=== PATIENT | female | born 1965 | race Caucasian/White ===

== ENCOUNTER 2018-07-27 04:59 | Inpatient (IN) | payer BC ==
[~2018-07-27] VITALS: Ht 149.9 cm; Wt 88.6 kg
[2018-07-27 09:27] VITALS: Ht 149.9 cm; Wt 88.6 kg
[2018-07-27] MEDS ORDERED: LEVO25TA6 PO (09:39)
[2018-07-27 11:00] VITALS: BP 166/83; PULSE 73; RESP 18
[2018-07-27] MEDS ORDERED: ONDANSETRON 4 MG INJ IV PRN (11:30)
[2018-07-27] MEDS ORDERED: ZOLPIDEM 5 MG TAB PO PRN (11:30)
[2018-07-27] MEDS ORDERED: DOCUSATE SODIUM 100 MG CAP PO PRN (11:30)
[2018-07-27] MEDS ORDERED: ACETAMINOPHEN 325 MG TAB PO PRN (11:30)
[2018-07-27] MEDS ORDERED: NACL 0.9% 3 ML SYG IV SCH (11:30)
[2018-07-27] MEDS ORDERED: HYDROCODONE/APAP (5/325) TAB PO PRN (11:30)
[2018-07-27] MEDS: morphine 2 MG INJ IV PRN ×2 (11:33→15:39)
[2018-07-27] MEDS ORDERED: PIPER-TAZO 3.375 GM IV (PMX) 100 ML IVPB SCH (12:00)
[2018-07-27] MEDS ORDERED: LEVOFLOXACIN 750MG/D5W (PMX) 150 ML IVPB SCH (13:00)
--- NOTE | 2018-07-27 13:20 | HP ---
Date/Time of Note Date/Time of Note DATE: 07/27/18 TIME: 13:17 Assessment/Plan VTE Prophylaxis SCD applied (from Nsg): Yes Pharmacological prophylaxis: NA/contraindicated Pharm contraindication: surgical contra Lines/Catheters IV Catheter Type (from Nrsg): Saline Lock Assessment/Plan Hospital Course 1. Right upper quadrant abdominal pain secondary to cholelithiasis and/or cholecystitis Ultrasound at outside hospital showed cholelithiasis with possible cholecystitis Follow-up on HIDA scan Surgery consultation with Dr. Stevan shipman Patient has no fevers or white count, no indication for antibiotics at this time 2. Hypothyroidism Continue meds 3. Morbid obesity Lifestyle changes Prophylaxis: SCDs HPI/ROS Admit Date/Time Admit Date/Time Jul 27, 2018 at 08:50 Hx of Present Illness Patient is a 53-year-old female with a history of obesity and hypothyroidism who presents with 3 days of worsening abdominal pain. Patient states that the pain was initially diffuse throughout her entire abdomen, the pain became worse yesterday and currently the pain is only in the right upper quadrant. Patient presented to an outside ER where labs including white count were normal, abdominal ultrasound showed cholelithiasis and possible cholecystitis. Patient denies any fevers, constipation or diarrhea, patient denies such symptoms in the past. Patient does report nausea and decreased p.o. intake over the past 2 days and to report having chills yesterday. Patient is currently stable with no other acute complaints. ROS Constitutional: no complaints, improved Eyes: no complaints ENT: no complaints Respiratory: no complaints Cardiovascular: no complaints Gastrointestinal: pain (Right upper quadrant) Genitourinary: no complaints Musculoskeletal: no complaints Skin: no complaints Neurologic: no complaints Endocrine: no complaints Lymphatic: no complaints Psychological: no complaints, nl mood/affect Immunologic: no complaints PMH/Family/Social Past Medical History Hypothyroidism Medications Current Medications IV Flush (NS 3 ml) 3 ml PER PROTOCOL IV ; Start 07/27/18 at 11:30 Ondansetron HCl (Zofran Inj) 4 mg Q6H PRN IV NAUSEA/VOMITING; Start 07/27/18 at 11:30 Acetaminophen (Tylenol Tab) 650 mg Q6H PRN PO .PAIN 1-3 OR TEMP; Start 07/27/18 at 11:30 Acetaminophen/ Hydrocodone Bitart ([place] (5/325)) 1 tab Q6H PRN PO .MOD PAIN 4- 6; Start 07/27/18 at 11:30 Morphine Sulfate (morphine) 2 mg Q4H PRN IV .SEVERE PAIN 7-10 Last administered on 07/27/18at 11:33; Admin Dose 2 MG; Start 07/27/18 at 11:30 Docusate Sodium (Colace) 100 mg Q12H PRN PO .CONSTIPATION; Start 07/27/18 at 11:30 Zolpidem Tartrate (Ambien) 5 mg QHS PRN PO .INSOMNIA; Start 07/27/18 at 11:30 Levofloxacin/ Dextrose 150 ml @ 100 mls/hr Q24H IVPB ; Start 07/27/18 at 13:00 Metronidazole 100 ml @ 100 mls/hr Q8 IVPB ; Start 07/27/18 at 14:00 Coded Allergies: Penicillins (Verified Allergy, Unknown, 07/27/18) hydrocodone (Verified Allergy, Unknown, 07/27/18) Past Surgical History Past Surgical Hx: no surgical history Family History Significant Family History: no pertinent family hx Social History Alcohol Use: rarely Smoking Status: Never smoker Drug Use: none Exam/Review of Systems Vital Signs Vitals Vital Signs Date Temp Pulse Resp B/P (MAP) Pulse Ox O2 O2 Flow FiO2 Time Delivery Rate 07/27/18 98.4 73 18 166/83 100 11:00 (110) Exam Constitutional: alert, oriented Respiratory: clear to auscultation Cardiovascular: regular rate and rhythm Gastrointestinal: soft, tender (Right upper quadrant); No distended Musculoskeletal: nl extremities to inspection PRABHJOT BURNS Jul 27, 2018 13:20
[2018-07-27] MEDS: Metronidazole 500 MG in NS 100 ML IVPB SCH ×2 (13:26→22:00)
--- NOTE | 2018-07-27 14:15 | CONS ---
Assessment/Plan Assessment/Plan Assessment/Plan (Daily) Cholelithiasis, rule out acute cholecystitis Patient may just have symptomatic cholelithiasis at this point per HIDA scan pending If HIDA scan is positive, would recommend lap antonio tomorrow. HIDA scan is negative, outpatient lap antonio Consultation Date/Type/Reason Admit Date/Time Jul 27, 2018 at 08:50 Date/Time of Note DATE: 07/27/18 TIME: 14:09 Hx of Present Illness The patient is a 53-year-old female with acute onset of right upper quadrant abdominal pain beginning Sunday. Her symptoms persisted throughout the next 2 days and she presented to the ER at [facility]. She was scheduled for surgery there but was transferred here for insurance reasons She had some nausea as well as emesis. She possibly had chills yesterday. She denies diarrhea or constipation. She denies abdominal pain at this point. States she feels much better. She has been tolerating clears this morning. 14 point review of systems was performed. Pertinent negatives and positives per HPI Past Medical History Medical History: hypothyroid, other (Morbid obesity) Home Meds Reported Medications Levothyroxine Sodium* (Levothyroxine Sodium*) 25 Mcg Tablet, 25 MCG PO BEFORE BREAKFAST, #30 TAB 07/27/18 Medications Current Medications IV Flush (NS 3 ml) 3 ml PER PROTOCOL IV ; Start 07/27/18 at 11:30 Ondansetron HCl (Zofran Inj) 4 mg Q6H PRN IV NAUSEA/VOMITING; Start 07/27/18 at 11:30 Acetaminophen (Tylenol Tab) 650 mg Q6H PRN PO .PAIN 1-3 OR TEMP; Start 07/27/18 at 11:30 Acetaminophen/ Hydrocodone Bitart ([place] (5/325)) 1 tab Q6H PRN PO .MOD PAIN 4- 6; Start 07/27/18 at 11:30 Morphine Sulfate (morphine) 2 mg Q4H PRN IV .SEVERE PAIN 7-10 Last administered on 07/27/18at 11:33; Admin Dose 2 MG; Start 07/27/18 at 11:30 Docusate Sodium (Colace) 100 mg Q12H PRN PO .CONSTIPATION; Start 07/27/18 at 11:30 Zolpidem Tartrate (Ambien) 5 mg QHS PRN PO .INSOMNIA; Start 07/27/18 at 11:30 Levofloxacin/ Dextrose 150 ml @ 100 mls/hr Q24H IVPB Last administered on 07/27/18at 13:26; Admin Dose 100 MLS/HR; Start 07/27/18 at 13:00 Metronidazole 100 ml @ 100 mls/hr Q8 IVPB Last administered on 07/27/18at 13:26; Admin Dose 100 MLS/HR; Start 07/27/18 at 14:00 Allergies: Coded Allergies: Penicillins (Verified Allergy, Unknown, 07/27/18) hydrocodone (Verified Allergy, Unknown, 07/27/18) Past Surgical History Past Surgical Hx: no surgical history Family History Significant Family History: no pertinent family hx Social History Alcohol Use: rarely Smoking Status: Never smoker Drug Use: none Exam/Review of Systems Exam Vitals Vital Signs Date Temp Pulse Resp B/P (MAP) Pulse Ox O2 O2 Flow FiO2 Time Delivery Rate 07/27/18 98.4 73 18 166/83 100 11:00 (110) Constitutional: alert, oriented, well developed, obese Head: normocephalic ENMT: nl external ears & nose Neck: supple, non-tender Respiratory: clear to auscultation, normal air movement Cardiovascular: regular rate and rhythm Gastrointestinal: soft, other (Nondistended, questionable right upper quadrant tenderness but only to very deep palpation) Musculoskeletal: nl extremities to inspection Extremities: normal pulses Neurological: 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 II-XII intact, nl mental status Skin: nl turgor, rash or lesions Results Results 24hrs WBC 14 and normal LFTs from [facility] Imaging Imaging Ultrasound from [place] shows cholelithiasis small pericholecystic fluid and possible gallbladder wall thickening Medications Medication Current Medications IV Flush (NS 3 ml) 3 ml PER PROTOCOL IV ; Start 07/27/18 at 11:30 Ondansetron HCl (Zofran Inj) 4 mg Q6H PRN IV NAUSEA/VOMITING; Start 07/27/18 at 11:30 Acetaminophen (Tylenol Tab) 650 mg Q6H PRN PO .PAIN 1-3 OR TEMP; Start 07/27/18 at 11:30 Acetaminophen/ Hydrocodone Bitart ([place] (5/325)) 1 tab Q6H PRN PO .MOD PAIN 4- 6; Start 07/27/18 at 11:30 Morphine Sulfate (morphine) 2 mg Q4H PRN IV .SEVERE PAIN 7-10 Last administered on 07/27/18at 11:33; Admin Dose 2 MG; Start 07/27/18 at 11:30 Docusate Sodium (Colace) 100 mg Q12H PRN PO .CONSTIPATION; Start 07/27/18 at 11:30 Zolpidem Tartrate (Ambien) 5 mg QHS PRN PO .INSOMNIA; Start 07/27/18 at 11:30 Levofloxacin/ Dextrose 150 ml @ 100 mls/hr Q24H IVPB Last administered on 07/27/18at 13:26; Admin Dose 100 MLS/HR; Start 07/27/18 at 13:00 Metronidazole 100 ml @ 100 mls/hr Q8 IVPB Last administered on 07/27/18at 13:26; Admin Dose 100 MLS/HR; Start 07/27/18 at 14:00 ROHIT GREGORIO MD Jul 27, 2018 14:15
[2018-07-27 14:23] VITALS: BP 179/84; PULSE 71; RESP 18
[2018-07-27 15:56] VITALS: BP 161/76; PULSE 71; RESP 16
[2018-07-27] MEDS ORDERED: morphine 4 MG/ML VIAL IV PRN (19:30)
[2018-07-27 22:03] VITALS: BP 174/81; PULSE 76; RESP 16
[2018-07-28] VITALS (19 sets, daily range): BP systolic 89–134; BP diastolic 50–76; PULSE 71–90; RESP 14–20
[2018-07-28] MEDS ORDERED: DEXTROSE 5%-0.45% NACL 1,000 ML IV SCH (05:00)
[2018-07-28] MEDS: Metronidazole 500 MG in NS 100 ML IVPB SCH ×3 (05:28→22:03)
[2018-07-28] MEDS ORDERED: SEVOFLURANE 15 MIN ONE (07:00)
[2018-07-28] MEDS ORDERED: LIDOCAINE 2% (SDV) 5 ML INJ ONE (07:00)
[2018-07-28] MEDS ORDERED: BUPIVACAINE 0.5%/EPI (SDV) 30 ML INJ ONE (07:15)
[2018-07-28] MEDS ORDERED: LIDOCAINE 1% (MPF) 30 ML INJ ONE (07:15)
--- NOTE | 2018-07-28 07:28 | PREAC ---
Date/Time of Note Date/Time of Note DATE: 07/28/18 TIME: 07: Anesthesia Eval and Record Evaluation Time Pre-Procedure Interview DATE: 07/28/18 TIME: : Age 53 Sex female NPO: 8 hrs Preoperative diagnosis cholecystitis Planned procedure laparoscopic cholecystectomy Past Medical History Past Medical History: Includes Endo: Hypothyroid GI: Morbid obesity Surgery & Anesthesia Issues No known issue Meds Anticoagulation: No Beta Daiana within 24 hr: No Reason Beta Daiana not given: Pt. not on B-Daiana Reported Medications Levothyroxine Sodium* (Levothyroxine Sodium*) 25 Mcg Tablet, 25 MCG PO BEFORE B REAKFAST, #30 TAB 07/27/18 Current Medications IV Flush (NS 3 ml) 3 ml PER PROTOCOL IV ; Start 07/27/18 at 11:30 Ondansetron HCl (Zofran Inj) 4 mg Q6H PRN IV NAUSEA/VOMITING Last administered on 07/27/18at 22:00; Admin Dose 4 MG; Start 07/27/18 at 11:30 Acetaminophen (Tylenol Tab) 650 mg Q6H PRN PO .PAIN 1-3 OR TEMP; Start 07/27/18 at 11:30 Acetaminophen/ Hydrocodone Bitart ([place] (5/325)) 1 tab Q6H PRN PO .MOD PAIN 4- 6; Start 07/27/18 at 11:30 Docusate Sodium (Colace) 100 mg Q12H PRN PO .CONSTIPATION; Start 07/27/18 at 11:30 Zolpidem Tartrate (Ambien) 5 mg QHS PRN PO .INSOMNIA; Start 07/27/18 at 11:30 Levofloxacin/ Dextrose 150 ml @ 100 mls/hr Q24H IVPB Last administered on 07/27/18at 13:26; Admin Dose 100 MLS/HR; Start 07/27/18 at 13:00 Metronidazole 100 ml @ 100 mls/hr Q8 IVPB Last administered on 07/28/18at 05:28; Admin Dose 100 MLS/HR; Start 07/27/18 at 14:00 Morphine Sulfate (morphine) 4 mg Q4H PRN IV .SEVERE PAIN 7-10 Last administered on 07/27/18at 22:00; Admin Dose 4 MG; Start 07/27/18 at 19:30 Dextrose/Sodium Chloride 1,000 ml @ 100 mls/hr Q10H IV Last administered on 07/28/18at 05:28; Admin Dose 100 MLS/HR; Start 07/28/18 at 05:00 Meds reviewed: Yes Allergies Coded Allergies: Penicillins (Verified Allergy, Unknown, 07/27/18) hydrocodone (Verified Allergy, Unknown, 07/27/18) Allergies Reviewed: Yes Labs/Studies Labs Reviewed: Reviewed by anesthesiologist Result Diagram: 07/28/18 0538 07/28/1838 Laboratory Tests 07/28/18 05:38 test: Negative Pre-procedure Exam Last vitals Vital Signs Date Temp Pulse Resp B/P (MAP) Pulse Ox O2 O2 Flow FiO2 Time Delivery Rate 07/28/18 98.8 71 18 131/61 96 07:09 (84) Airway: Adequate mouth opening, Adequate thyromental dist Mallampati: Mallampati II Teeth: Normal Lung: Normal Heart: Normal ASA Physical Status ASA physical status: 2 Emergency: None Planned Anesthetic General/MAC: ETT Planned Pain Management Parenteral pain med Pre-operative Attestations Prior to commencing anesthesia and surgery, the patient was re-evaluated, there was verification of: *The patient's identity *The results of appropriate recent lab work and preoperative vital signs *The above evaluation not changing prior to induction *Anesthetic plan, risk benefits, alternative and complications discussed with patient/family; questions answered; patient/family understands, accepts and wishes to proceed. ROYCE SWEENEY Jul 28, 2018 07:28
--- NOTE | 2018-07-28 07:33 | PN ---
Date/Time of Note Date/Time of Note DATE: 07/28/18 TIME: 07:31 Assessment/Plan Lines/Catheters IV Catheter Type (from Nrs): Saline Lock Assessment/Plan Assessment/Plan HIDA scan was consistent with acute cholecystitis overnight. Stress proceeding with laparoscopic, possible open, cholecystectomy, possible cholangiogram. All benefits, risks, alternatives discussed in detail. All questions answered. The patient elects to proceed. Subjective 24 Hr Interval Summary Constitutional: other (Still complaining of pain) Exam/Review of Systems Vital Signs Vitals Vital Signs Date Temp Pulse Resp B/P (MAP) Pulse Ox O2 O2 Flow FiO2 Time Delivery Rate 07/28/18 98.8 71 18 131/61 96 07:09 (84) Intake and Output 07/27/18 07/27/18 07/28/18 1515:00 23:00 07:00 IntakeIntake Total 490 ml 100 ml BalanceBalance 490 ml 100 ml Exam Constitutional: alert, oriented, well developed, obese Respiratory: clear to auscultation Cardiovascular: regular rate and rhythm Gastrointestinal: soft, other (Tender to right upper quadrant) Results Result Diagram: 07/28/18 0538 07/28/18 0538 ROHIT GREGORIO MD Jul 28, 2018 07:33
[2018-07-28] MEDS ORDERED: PROPOFOL 100 ML ONE (07:35)
[2018-07-28] MEDS ORDERED: ROCURONIUM 50 MG INJ ONE (07:37)
[2018-07-28] MEDS ORDERED: SUCCINYLCHOLINE CHLORIDE 100 MG/5 ML SYG IV ONE (07:37)
--- NOTE | 2018-07-28 07:40 | OPR ---
Date/Time of Note Date/Time of Note DATE: 07/28/18 TIME: 07:37 Operative Report Procedure Date: Jul 28, 2018 Preoperative Diagnosis Acute cholecystitis Postoperative Diagnosis Same Operation/Procedure Performed Laparoscopic cholecystectomy Surgeon see signature line Commissioned Security Officer None Anesthesia Type: general Anesthesiologist: ROYCE SWEENEY Estimated Blood Loss: 150 - 200 ml's Transfusion none Specimen Gallbladder Grafts/Implants none Complications none Pt Condition Post Procedure: stable Disposition: PACU Indications The patient is a 53-year-old female with acute onset epigastric right upper quadrant pain. She was scheduled for surgery at an outside hospital was transferred here for insurance reasons. HIDA scan was positive for acute cholecystitis. We discussed proceeding with a laparoscopic, possible open, cholecystectomy, possible cholangiogram. All benefits, risks, alternatives were discussed in detail. All questions answered. The patient elects to proceed. Procedure Description The patient was brought to operative room and placed supine on the table. After preop antibiotics and SCDs, the patient was intubated. The abdomen was cleaned, prepped, draped usual sterile fashion. All incisions were demonstrated with half percent lidocaine with epinephrine. An 11 mm incision was made in the umbilicus. Using a 5 by laparoscope obtained trocar, the abdomen was entered under direct vision insufflated 50 mils of mercury CO2. The following trochars were then placed: a right lower quadrant 5 mm, right upper quadrant 5 mm and a subxiphoid 5 mm. The 5 mm umbilical trocar was exchanged 11 mm and direct vision. The gallbladder was thickened and edematous. It was consistent with acute cholecystitis. It was grasped at the fundus and retracted over the liver. Malcom's pouch was identified and retracted laterally. The peritoneum underneath Becerra's was scored medially and laterally. I dissected out and skeletonized the cystic duct and artery. I dissected the gallbladder off the cystic plate of the liver. I now had my critical view of safety where I saw my duct and artery with no intervening structures. The artery was then clipped twice proximally once distally and divided. The cystic duct was too edematous and enlarged to fit 5 mm clips. I transected the cystic duct. The proximal end was tied off with a Prolene Endoloop. It was a good closure. The gallbladder was then removed and the gallbladder fossa with electrocautery. It was placed in Endo Catch bag removed and the 12 mm trocar site. There was venous bleeding from the gallbladder fossa which was difficult to control with just pressure. However with the administration of FloSeal the gallbladder fossa became hemostatic. I lost approximately 150-20 cc of blood during this process of getting the liver bed under control. I irrigated and aspirated out the right upper quadrant until effluent was clear. I visualized my gallbladder fossa. It was hemostatic. There was no evidence of bleeding or bile staining. Due to the acuteness of these gallbladder, I placed a 19 [place] round Eugenio in the gallbladder fossa. It exited through the right lower quadrant 5 mm trocar site was sutured the skin with a 2-0 nylon. The fascia of the 11 mm trocar site was closed with 0 Vicryl. The abdomen was now desufflated and all trochars were removed. Incisions were all closed with 4 Monocryl, Mastisol, and Steri-Strips. A 2 x 2 gauze and Tegaderm was placed over the umbilical incision and around the PEMA site.. Patient tolerated the procedure well. She was extubated in the OR and transferred to the recovery room in stable condition. ROHIT GREGORIO MD Jul 28, 2018 07:40
[2018-07-28] MEDS ORDERED: ONDANSETRON 4 MG INJ ONE (08:25)
[2018-07-28] MEDS ORDERED: DEXAMETHASONE 4 MG/ML 5 ML INJ ONE (08:25)
[2018-07-28] MEDS ORDERED: PHENYLephrine 10 MG INJ ONE (08:41)
[2018-07-28] MEDS ORDERED: ALBUMIN HUMAN 5% 250 ML ONE (09:12)
--- NOTE | 2018-07-28 09:36 | PAC ---
Date/Time of Note Date/Time of Note DATE: 07/28/18 TIME: 09:36 Post-Anesthesia Notes Post-Anesthesia Note Last documented vital signs Vital Signs Date Temp Pulse Resp B/P (MAP) Pulse Ox O2 O2 Flow FiO2 Time Delivery Rate 07/28/18 98.8 71 18 131/61 96 0936 (84) Activity: WNL Respiratory function: WNL Cardiovascular function: WNL Mental status: Baseline Pain reasonably controlled: Yes Hydration appropriate: Yes Nausea/Vomiting absent: Yes ROYCE SWEENEY Jul 28, 2018 09:36
--- NOTE | 2018-07-28 09:40 | SIPON ---
Date/Time of Note Date/Time of Note DATE: 07/28/18 TIME: 09:38 Operative Report Preoperative Diagnosis Acute cholecystitis Postoperative Diagnosis Same Operation/Procedure Performed Laparoscopic cholecystectomy Surgeon see signature line education administrative assistant none Anesthesia: general Estimated blood loss: 150 - 200 ml's Transfusion Required none Specimen Gallbladder Grafts/Implants none Complications none ROHIT GREGORIO MD Jul 28, 2018 09:40
[2018-07-28] MEDS ORDERED: ALBUTEROL 0.083% (NEB) 2.5 MG/3 ML AMP HHN PRN (10:00)
[2018-07-28] MEDS ORDERED: MEPERIDINE 25 MG INJ IV PRN (10:00)
[2018-07-28] MEDS ORDERED: ONDANSETRON 4 MG INJ IV PRN ×2 (10:00)
[2018-07-28] MEDS ORDERED: EPHEDrine SULFATE 50 MG/5 ML SYG IV PRN (10:00)
[2018-07-28] MEDS ORDERED: DIPHENHYDRAMINE 50 MG INJ IV PRN (10:00)
[2018-07-28] MEDS ORDERED: hydrALAzine 20 MG INJ IV PRN (10:00)
[2018-07-28] MEDS ORDERED: METOCLOPRAMIDE 10 MG INJ IV PRN (10:00)
[2018-07-28] MEDS ORDERED: LABETALOL HCL 20MG INJ IV PRN (10:00)
[2018-07-28] MEDS ORDERED: HYDROmorphONE 1 MG/5 ML IV SYRINGE IV PRN ×3 (10:00)
[2018-07-28] MEDS ORDERED: FENTAnyl 50 MCG/ML VIAL IV PRN ×3 (10:00)
[2018-07-28] MEDS: LEVOFLOXACIN 500MG/D5W (PMX) 100 ML IVPB SCH (11:28)
[2018-07-28] MEDS ORDERED: metroNIDAZOLE 500 MG/NS (PMX) 100 ML IVPB SCH (14:00)
[2018-07-28] MEDS: D5-NS + KCL 20 MEQ 1,000 ML IV SCH ×2 (16:21→20:00)
--- NOTE | 2018-07-28 16:28 | PN ---
Date/Time of Note Date/Time of Note DATE: 07/28/18 TIME: 16:16 Assessment/Plan VTE Prophylaxis Risk score (from Ns)>0 risk: 3 SCD applied (from [facility]): Yes Pharmacological prophylaxis: NA/contraindicated Pharm contraindication: surgical contra Lines/Catheters IV [facility] Type [facility]from [facility]): Peripheral IV Assessment/Plan Hospital Course 1. Acute cholecystitis Status post lap scopic cholecystectomy postop day #0 Patient with PEMA drain Surgery recommendations is for DC home tomorrow or Sunday Continue Levaquin and Flagyl but anticipate discontinuation tomorrow 2. Hypothyroidism Continue meds 3. Morbid obesity Lifestyle changes Prophylaxis: SCDs DC planning: Anticipate DC home tomorrow Sunday depending on surgery recommendations Result Diagram: 07/28/1838 07/28/18 05 Results 24hrs Laboratory Tests Test 07/28/18 05:37 07/28/18 05:38 Serum HCG, Qualitative NEGATIVE White Blood Count 17.9 H Red Blood Count 4.75 Hemoglobin 13.0 Hematocrit 40.9 Mean Corpuscular Volume 86.1 Mean Corpuscular Hemoglobin 27.4 L Mean Corpuscular Hemoglobin Concent 31.8 L Red Cell Distribution Width 15.0 H Platelet Count 208 Mean Platelet Volume 11.9 H Immature Granulocytes % 0.700 H Neutrophils % 84.1 H Lymphocytes % 6.7 L Monocytes % 8.2 Eosinophils % 0.0 Basophils % 0.3 Nucleated Red Blood Cells % 0.0 Immature Granulocytes # 0.130 H Neutrophils # 15.0 H Lymphocytes # 1.2 Monocytes # 1.5 H Eosinophils # 0.0 Basophils # 0.1 Nucleated Red Blood Cells # 0.0 Sodium Level 143 Potassium Level 4.1 Chloride Level 103 Carbon Dioxide Level 32 H Anion Gap 8 Blood Urea Nitrogen 19 Creatinine 0.95 Est Glomerular Filtrat Rate mL/min > 60 Glucose Level 114 Hemoglobin A1c 5.4 Calcium Level 9.9 Phosphorus Level 3.2 Magnesium Level 2.1 Total Bilirubin 0.5 Direct Bilirubin 0.00 Indirect Bilirubin 0.5 Aspartate Amino Transf (AST/SGOT) 20 Alanine Aminotransferase (ALT/SGPT) 16 Alkaline Phosphatase 88 Total Protein 7.2 Albumin 3.8 Globulin 3.40 H Albumin/Globulin Ratio 1.11 Subjective 24 Hr Interval Summary Constitutional: no complaints Exam/Review of Systems Exam Vitals Vital Signs Date Temp Pulse Resp B/P (MAP) Pulse Ox O2 O2 Flow FiO2 Time Delivery Rate 07/28/18 97.7 73 16 107/58 92 11:36 (74) 07/28/18 Simple 10.0 09:53 Mask Intake and Output 07/27/18 07/27/18 07/28/18 1515:00 23:00 07:00 IntakeIntake Total 490 ml 100 ml BalanceBalance 490 ml 100 ml Constitutional: alert, oriented Respiratory: clear to auscultation Cardiovascular: regular rate and rhythm Gastrointestinal: soft; No distended Musculoskeletal: nl extremities to inspection Results Results 24hrs Laboratory Tests Test 07/28/18 05:37 07/28/18 05:38 Serum HCG, Qualitative NEGATIVE White Blood Count 17.9 H Red Blood Count 4.75 Hemoglobin 13.0 Hematocrit 40.9 Mean Corpuscular Volume 86.1 Mean Corpuscular Hemoglobin 27.4 L Mean Corpuscular Hemoglobin Concent 31.8 L Red Cell Distribution Width 15.0 H Platelet Count 208 Mean Platelet Volume 11.9 H Immature Granulocytes % 0.700 H Neutrophils % 84.1 H Lymphocytes % 6.7 L Monocytes % 8.2 Eosinophils % 0.0 Basophils % 0.3 Nucleated Red Blood Cells % 0.0 Immature Granulocytes # 0.130 H Neutrophils # 15.0 H Lymphocytes # 1.2 Monocytes # 1.5 H Eosinophils # 0.0 Basophils # 0.1 Nucleated Red Blood Cells # 0.0 Sodium Level 143 Potassium Level 4.1 Chloride Level 103 Carbon Dioxide Level 32 H Anion Gap 8 Blood Urea Nitrogen 19 Creatinine 0.95 Est Glomerular Filtrat Rate mL/min > 60 Glucose Level 114 Hemoglobin A1c 5.4 Calcium Level 9.9 Phosphorus Level 3.2 Magnesium Level 2.1 Total Bilirubin 0.5 Direct Bilirubin 0.00 Indirect Bilirubin 0.5 Aspartate Amino Transf (AST/SGOT) 20 Alanine Aminotransferase (ALT/SGPT) 16 Alkaline Phosphatase 88 Total Protein 7.2 Albumin 3.8 Globulin 3.40 H Albumin/Globulin Ratio 1.11 Medications Medication Current Medications IV Flush (NS 3 ml) 3 ml PER PROTOCOL IV ; Start 07/27/18 at 11:30 Ondansetron HCl (Zofran Inj) 4 mg Q6H PRN IV NAUSEA/VOMITING Last administered on 07/27/18at 22:00; Admin Dose 4 MG; Start 07/27/18 at 11:30 Acetaminophen (Tylenol Tab) 650 mg Q6H PRN PO .PAIN 1-3 OR TEMP; Start 07/27/18 at 11:30 Acetaminophen/ Hydrocodone Bitart ([place] (5/325)) 1 tab Q6H PRN PO .MOD PAIN 4- 6; Start 07/27/18 at 11:30 Docusate Sodium (Colace) 100 mg Q12H PRN PO .CONSTIPATION; Start 07/27/18 at 11:30 Zolpidem Tartrate (Ambien) 5 mg QHS PRN PO .INSOMNIA; Start 07/27/18 at 11:30 Metronidazole 100 ml @ 100 mls/hr Q8 IVPB Last administered on 07/28/18at 13:35; Admin Dose 100 MLS/HR; Start 07/27/18 at 14:00 Morphine Sulfate (morphine) 4 mg Q4H PRN IV .SEVERE PAIN 7-10 Last administered on 07/27/18at 22:00; Admin Dose 4 MG; Start 07/27/18 at 19:30 Levofloxacin/ Dextrose 100 ml @ 100 mls/hr Q24H IVPB Last administered on 07/28/18at 11:28; Admin Dose 100 MLS/HR; Start 07/28/18 at 10:00 Ondansetron HCl (Zofran Inj) 4 mg Q6H PRN IV NAUSEA AND/OR VOMITING; Start 07/28/18 at 10:00 Acetaminophen (Tylenol Tab) 650 mg Q6H PRN PO MILD PAIN(1-3)OR ELEVATED TEMP; Start 07/28/18 at 10:00 Potassium Chloride/Dextrose/ Sod Cl 1,000 ml @ 100 mls/hr Q10H IV ; Start 07/28/18 at 10:00 Enoxaparin Sodium (Lovenox) 40 mg DAILY@07 SC ; Start 07/29/18 at 07:00 PRABHJOT BURNS Jul 28, 2018 16:27
[2018-07-29 02:03] VITALS: BP 125/64; PULSE 69; RESP 18
[2018-07-29] MEDS: Metronidazole 500 MG in NS 100 ML IVPB SCH ×3 (05:32→21:27)
[2018-07-29] MEDS: D5-NS + KCL 20 MEQ 1,000 ML IV SCH ×3 (05:32→18:48)
[2018-07-29] MEDS: ENOXAPARIN 40 MG/0.4 ML SYG SC SCH (06:35)
[2018-07-29 08:10] VITALS: BP 143/76; PULSE 84; RESP 18
[2018-07-29] MEDS: LEVOFLOXACIN 500MG/D5W (PMX) 100 ML IVPB SCH (09:13)
[2018-07-29 14:32] VITALS: BP 134/73; PULSE 66; RESP 16
--- NOTE | 2018-07-29 17:44 | PN ---
Date/Time of Note Date/Time of Note DATE: 07/29/18 TIME: 17:42 Assessment/Plan Lines/Catheters IV Catheter Type (from Nrsg): Peripheral IV Assessment/Plan Assessment/Plan Postop day #1 status post lap antonio Hemodynamically stable. Hematocrit stable Drain removed Okay for discharge from surgical perspective Subjective 24 Hr Interval Summary Constitutional: no complaints, improved Pain Control: well controlled Exam/Review of Systems Vital Signs Vitals Vital Signs Date Temp Pulse Resp B/P (MAP) Pulse Ox O2 O2 Flow FiO2 Time Delivery Rate 07/29/18 99.3 66 16 134/73 97 14:32 (93) 07/28/18 Simple 10.0 09:53 Mask Intake and Output 07/28/18 07/28/18 07/29/18 1515:00 23:00 07:00 IntakeIntake Total 2730 ml 220 ml 1460 ml OutputOutput Total 225 ml 140 ml 70 ml BalanceBalance 2505 ml 80 ml 1390 ml Exam Constitutional: alert, oriented Psych: no complaints Neck: supple Respiratory: clear to auscultation Gastrointestinal: soft, other (Nondistended, some alexx-incisional tenderness to umbilicus) Results Result Diagram: 07/29/18 1250 07/29/18 0505 ROHIT GREGORIO MD Jul 29, 2018 17:43
[2018-07-29 19:49] VITALS: BP 136/73; PULSE 77; RESP 18
--- NOTE | 2018-07-29 19:53 | PN ---
Date/Time of Note Date/Time of Note DATE: 07/29/18 TIME: 19:53 Assessment/Plan VTE Prophylaxis Risk score (from Nsg)>0 risk: 4 SCD applied (from Ns): Yes Pharmacological prophylaxis: heparin Lines/Catheters IV Catheter Type (from Nrs): Peripheral IV Assessment/Plan Hospital Course 53 yo female with cholecystitis s/p lap antonio POD 1 - Continue abx for now - Dc in AM Result Diagram: 07/29/18 1250 07/29/18 0505 Results 24hrs Laboratory Tests Test 07/29/18 05:05 07/29/18 12:50 White Blood Count 12.1 #H Red Blood Count 3.40 #L Hemoglobin 9.3 #L Hematocrit 29.2 #L 29.2 L Mean Corpuscular Volume 85.9 Mean Corpuscular Hemoglobin 27.4 L Mean Corpuscular Hemoglobin Concent 31.8 L Red Cell Distribution Width 15.1 H Platelet Count 183 Mean Platelet Volume 11.8 H Immature Granulocytes % 0.500 H Neutrophils % 81.0 H Lymphocytes % 9.5 L Monocytes % 8.9 Eosinophils % 0.0 Basophils % 0.1 Nucleated Red Blood Cells % 0.0 Immature Granulocytes # 0.060 H Neutrophils # 9.8 H Lymphocytes # 1.2 Monocytes # 1.1 H Eosinophils # 0.0 Basophils # 0.0 Nucleated Red Blood Cells # 0.0 Sodium Level 142 Potassium Level 3.8 Chloride Level 107 Carbon Dioxide Level 28 Anion Gap 7 Blood Urea Nitrogen 14 Creatinine 0.85 Est Glomerular Filtrat Rate mL/min > 60 Glucose Level 129 Calcium Level 8.7 Total Bilirubin 0.2 Direct Bilirubin 0.00 Indirect Bilirubin 0.2 Aspartate Amino Transf (AST/SGOT) 43 Alanine Aminotransferase (ALT/SGPT) 42 Alkaline Phosphatase 72 Total Protein 5.8 #L Albumin 3.0 L Globulin 2.80 Albumin/Globulin Ratio 1.07 Subjective 24 Hr Interval Summary Free Text/Dictation wants to stay the night feels well, pain controlled Exam/Review of Systems Exam Vitals Vital Signs Date Temp Pulse Resp B/P (MAP) Pulse Ox O2 O2 Flow FiO2 Time Delivery Rate 07/29/18 98.9 77 18 136/73 96 19:49 (94) 07/28/18 Simple 10.0 09:53 Mask Intake and Output 07/28/18 07/28/18 07/29/18 1515:00 23:00 07:00 IntakeIntake Total 2730 ml 220 ml 1460 ml OutputOutput Total 225 ml 140 ml 70 ml BalanceBalance 2505 ml 80 ml 1390 ml Constitutional: alert, oriented, well developed Psych: no complaints, nl mood/affect Head: normocephalic, atraumatic Eyes: nl conjunctiva, EOMI, nl lids, nl sclera, PERRL ENMT: nl external ears & nose, nl lips & teeth, nl nasal mucosa & septum Neck: supple, non-tender Respiratory: clear to auscultation, normal air movement Cardiovascular: regular rate and rhythm, nl pulses Gastrointestinal: soft, nl liver, spleen, non-tender Musculoskeletal: nl extremities to inspection, nl gait and stance Extremities: normal pulses Neurological: [employer] II-XII intact, nl mental status, nl speech, nl strength Skin: nl turgor; No rash or lesions Lymph: nl lymph nodes Results Results 24hrs Laboratory Tests Test 07/29/18 05:05 07/29/18 12:50 White Blood Count 12.1 #H Red Blood Count 3.40 #L Hemoglobin 9.3 #L Hematocrit 29.2 #L 29.2 L Mean Corpuscular Volume 85.9 Mean Corpuscular Hemoglobin 27.4 L Mean Corpuscular Hemoglobin Concent 31.8 L Red Cell Distribution Width 15.1 H Platelet Count 183 Mean Platelet Volume 11.8 H Immature Granulocytes % 0.500 H Neutrophils % 81.0 H Lymphocytes % 9.5 L Monocytes % 8.9 Eosinophils % 0.0 Basophils % 0.1 Nucleated Red Blood Cells % 0.0 Immature Granulocytes # 0.060 H Neutrophils # 9.8 H Lymphocytes # 1.2 Monocytes # 1.1 H Eosinophils # 0.0 Basophils # 0.0 Nucleated Red Blood Cells # 0.0 Sodium Level 142 Potassium Level 3.8 Chloride Level 107 Carbon Dioxide Level 28 Anion Gap 7 Blood Urea Nitrogen 14 Creatinine 0.85 Est Glomerular Filtrat Rate mL/min > 60 Glucose Level 129 Calcium Level 8.7 Total Bilirubin 0.2 Direct Bilirubin 0.00 Indirect Bilirubin 0.2 Aspartate Amino Transf (AST/SGOT) 43 Alanine Aminotransferase (ALT/SGPT) 42 Alkaline Phosphatase 72 Total Protein 5.8 #L Albumin 3.0 L Globulin 2.80 Albumin/Globulin Ratio 1.07 Medications Medication Current Medications IV Flush (NS 3 ml) 3 ml PER PROTOCOL IV ; Start 07/27/18 at 11:30 Acetaminophen/ Hydrocodone Bitart ([place] (5/325)) 1 tab Q6H PRN PO .MOD PAIN 4- 6; Start 07/27/18 at 11:30 Docusate Sodium (Colace) 100 mg Q12H PRN PO .CONSTIPATION; Start 07/27/18 at 1 1:30 Zolpidem Tartrate (Ambien) 5 mg QHS PRN PO .INSOMNIA; Start 07/27/18 at 11:30 Metronidazole 100 ml @ 100 mls/hr Q8 IVPB Last administered on 07/29/18at 14:04; Admin Dose 100 MLS/HR; Start 07/27/18 at 14:00 Morphine Sulfate (morphine) 4 mg Q4H PRN IV .SEVERE PAIN 7-10 Last administered on 07/27/18at 22:00; Admin Dose 4 MG; Start 07/27/18 at 19:30 Levofloxacin/ Dextrose 100 ml @ 100 mls/hr Q24H IVPB Last administered on 07/29/18at 09:13; Admin Dose 100 MLS/HR; Start 07/28/18 at 10:00 Ondansetron HCl (Zofran Inj) 4 mg Q6H PRN IV NAUSEA AND/OR VOMITING; Start 07/28/18 at 10:00 Acetaminophen (Tylenol Tab) 650 mg Q6H PRN PO MILD PAIN(1-3)OR ELEVATED TEMP; Start 07/28/18 at 10:00 Potassium Chloride/Dextrose/ Sod Cl 1,000 ml @ 100 mls/hr Q10H IV Last administered on 07/29/18at 18:48; Admin Dose 100 MLS/HR; Start 07/28/18 at 10:00 Enoxaparin Sodium (Lovenox) 40 mg DAILY@07 SC Last administered on 07/29/18at 06:35; Admin Dose 40 MG; Start 07/29/18 at 07:00 MARK VELASCO MD Jul 29, 2018 19:53
[2018-07-29] MEDS: ACETAMINOPHEN 325 MG TAB PO PRN (20:10)
[2018-07-30 01:17] VITALS: BP 110/68; PULSE 67; RESP 18
[2018-07-30] MEDS: Metronidazole 500 MG in NS 100 ML IVPB SCH (05:59)
[2018-07-30] MEDS: D5-NS + KCL 20 MEQ 1,000 ML IV SCH ×2 (05:59→11:48)
[2018-07-30] MEDS: ENOXAPARIN 40 MG/0.4 ML SYG SC SCH (06:03)
[2018-07-30 08:00] VITALS: BP 133/78; PULSE 59; RESP 16
[2018-07-30] MEDS: ACETAMINOPHEN 325 MG TAB PO PRN (08:28)
[2018-07-30] MEDS: LEVOFLOXACIN 500MG/D5W (PMX) 100 ML IVPB SCH (10:00)
--- NOTE | 2018-07-30 16:28 | DS ---
Date/Time of Note Date/Time of Note DATE: 07/30/18 TIME: 16:27 Discharge Summary Admission/Discharge Info Admit Date/Time Jul 27, 2018 at 08:50 Discharge Date/Time Jul 30, 2018 at 13:20 Discharge Diagnosis Cholecystitis Patient Condition: Stable Hospital Course 53 yo female with cholecystitis . Treated with IV antibiotics. She then underwent cholecystectomy per Dr Woodard, uncopmlicated. Discharged to home Home Meds Reported Medications Levothyroxine Sodium* (Levothyroxine Sodium*) 25 Mcg Tablet, 25 MCG PO BEFORE BREAKFAST, #30 TAB 07/27/18 Primary Care Provider Not On Staff Doctor Pending Labs Laboratory Tests Test 07/30/18 05:20 White Blood Count 6.2 10^3/ul (4.8-10.8) Red Blood Count 3.19 10^6/ul (4.20-5.40) Hemoglobin 8.8 g/dl (12.0-16.0) Hematocrit 27.9 % (37.0-47.0) Mean Corpuscular Volume 87.5 fl (82.0-101.0) Mean Corpuscular Hemoglobin 27.6 pg (29.0-33.0) Mean Corpuscular Hemoglobin Concent 31.5 g/dl (32.0-37.0) Red Cell Distribution Width 15.0 % (11.5-14.5) Platelet Count 176 10^3/UL (140-415) Mean Platelet Volume 11.6 fl (7.4-10.4) Immature Granulocytes % 1.000 % (0.001-0.429) Neutrophils % 61.9 % (39.0-77.0) Lymphocytes % 28.7 % (15.0-51.0) Monocytes % 7.1 % (0.0-11.0) Eosinophils % 1.1 % (0.0-7.0) Basophils % 0.2 % (0.0-2.0) Nucleated Red Blood Cells % 0.0 /100WBC (0.0-0.0) Immature Granulocytes # 0.060 10^3/ul (0.0-0.031) Neutrophils # 3.9 10^3/ul (1.6-7.5) Lymphocytes # 1.8 10^3/ul (0.8-2.9) Monocytes # 0.4 10^3/ul (0.3-0.9) Eosinophils # 0.1 10^3/ul (0.0-0.5) Basophils # 0.0 10^3/ul (0.0-0.1) Nucleated Red Blood Cells # 0.0 10^3/ul (0.0-0.0) Sodium Level 141 mmol/L (135-144) Potassium Level 4.1 mmol/L (3.5-5.1) Chloride Level 107 mmol/L (97-110) Carbon Dioxide Level 29 mmol/L (21-31) Anion Gap 5 (5-13) Blood Urea Nitrogen 13 mg/dl (7-20) Creatinine 0.80 mg/dl (0.44-1.00) Est Glomerular Filtrat Rate mL/min > 60 mL/min (>60) Glucose Level 81 mg/dl (70-220) Calcium Level 8.0 mg/dl (8.4-10.2) Total Bilirubin 0.2 mg/dl (0.2-1.3) Direct Bilirubin 0.00 mg/dl (0.00-0.20) Indirect Bilirubin 0.2 mg/dl (0-1.1) Aspartate Amino Transf (AST/SGOT) 31 IU/L (15-46) Alanine Aminotransferase (ALT/SGPT) 32 IU/L (13-69) Alkaline Phosphatase 57 IU/L (42-121) Total Protein 5.3 g/dl (6.1-8.1) Albumin 2.7 g/dl (3.3-4.9) Globulin 2.60 g/dl (1.3-3.2) Albumin/Globulin Ratio 1.03 MARK VELASCO MD Jul 30, 2018 16:28
== END 2018-07-30 13:20 | disposition home or self-care (01) | DRG 419 ==
LOC: 2NE 08:50
PROVIDERS: ADMIT Internal Medicine; ATTEND Internal Medicine
PROC: 0FT44ZZ Resection of Gallbladder, Percutaneous Endoscopic Approach (ICD-10-PCS; principal; 2018-07-27)
DX: K80.00 Calculus of gallbladder with acute cholecystitis without obstruction (principal); E03.9 Hypothyroidism, unspecified; E66.01 Morbid (severe) obesity due to excess calories; Z68.39 Body mass index [BMI] 39.0-39.9, adult
CPT/HCPCS: 78226; 80053; 83036; 83735; 84100; 84703; 85014; 85025; 88304; A9537; J1100; J1170; J1650; J1956; J2270; J2405; J3010; J3480; J7042; P9045